=== PATIENT | female | born 1995 | race Caucasian/White ===

== ENCOUNTER 2017-07-04 05:00 | Emergency (ER) | payer SELFPAY ==
[~2017-07-04] VITALS: Ht 165.1 cm; Wt 60.0 kg
[2017-07-04 05:09] VITALS: BP 144/75; PULSE 89; RESP 18; TEMP 98.4; O2SAT 97
[2017-07-04] MEDS ORDERED: LIDOCAINE VISCOUS 2% SOLN 15 ML UDC SWISH-SWAL ONE (05:30)
[2017-07-04] MEDS ORDERED: ALUMINUM/MAGNESIUM/SIMETH 30 ML CUP PO ONE (05:30)
[2017-07-04] MEDS ORDERED: ONDANSETRON ODT 4 MG TAB PO ONE (05:30)
[2017-07-04] MEDS ORDERED: METOCLOPRAMIDE HCL 10 MG/2 ML VIAL IM SCH (06:00)
--- NOTE | 2017-07-04 06:09 | PD ---
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 Pt has epigastric pain and N/V . pt is asking for IV fluid . I explain that Zofran ODT is indicated and will treat her accordingly. Patient denies hematemesis she denies diarrhea she denies trauma she denies any fall or head injury she is just been drinking for over 7 hours she says and feels that she needs IV fluid and has mild epigastric pain and retching. no signs of pancreatitis or GB disease PO treatment indicated at this time [facility] Past Medical History Medical History: Denies Significant Hx ?: Not Past Surgical History Surgical History: No Previous Surgery Social History Alcohol Use: Yes Tobacco Use: No Substance Use: No Allergies-Medications (Allergen,Severity, Reaction): Coded Allergies: No Known Allergies (Unverified , 07/04/17) Reported Meds & Prescriptions Reported Meds & Active Scripts Active Zofran Odt (Ondansetron Odt) 4 Mg Tab 4 Mg SL Q6HR PRN Review of Systems Except as stated in HPI: all other systems reviewed are Neg Gastrointestinal: Positive: Vomiting, Abdominal Pain, No: Hematemesis, Hematochezia, Constipation, Changes in Bowel Habits, Indigestion (Heavy alcohol intoxication now leading to vomit and epigastric pain) Physical Exam Narrative GENERAL: smiling telling me her main complaint is epigastric pain after binge drinking No active vomit in triage or exam room on initial eval SKIN: Warm and dry. HEAD: Atraumatic. Normocephalic. EYES: Pupils equal and round. No scleral icterus. No injection or drainage. ENT: No nasal bleeding or discharge. Mucous membranes pink and moist. NECK: Trachea midline. No JVD. CARDIOVASCULAR: Regular rate and rhythm. RESPIRATORY: No accessory muscle use. Clear to auscultation. Breath sounds equal bilaterally. GASTROINTESTINAL: Abdomen tender to epigastric area soft, nondistended. Hepatic and splenic margins not palpable. MUSCULOSKELETAL: Extremities without clubbing, cyanosis, or edema. No obvious deformities. NEUROLOGICAL: Awake and alert. No obvious cranial nerve deficits. Motor grossly within normal limits. Five out of 5 muscle strength in the arms and legs. Normal speech. PSYCHIATRIC: Appropriate mood and affect; insight and judgment normal. Data Data Last Documented VS Vital Signs Date Time Temp Pulse Resp B/P (MAP) Pulse Ox O2 Delivery O2 Flow Rate FiO2 07/04/17 05:09 98.4 89 18 144/75 (98) 97 Orders Orders Ondansetron Odt (Zofran Odt) (07/04/17 05:30) Al-Mag Hy-Si 40-40-4 Mg/Ml Liq (Mag-Al P (07/04/17 05:30) Lidocaine 2% Viscous (Xylocaine 2% Visco (07/04/17 05:30) Metoclopramide Inj (Reglan Inj) (07/04/17 06:00) Ranitidine Liq (Zantac Liq) (07/04/17 06:15) Complete Blood Count With Diff (07/04/17 07:22) Comprehensive Metabolic Panel (07/04/17 07:22) Lipase (07/04/17 07:22) Urinalysis - C+S If Indicated (07/04/17 07:22) Iv Access Insert/Monitor (07/04/17 07:22) Ecg Monitoring (07/04/17 07:22) Oximetry (07/04/17 07:22) Sodium Chlor 0.9% 1000 Ml Inj (Ns 1000 M (07/04/17 07:22) Sodium Chloride 0.9% Flush (Ns Flush) (07/04/17 07:30) Ed Urine Pregnancytest Poc (07/04/17 07:22) Lorazepam Inj (Ativan Inj) (07/04/17 07:45) Lorazepam Inj (Ativan Inj) (07/04/17 08:15) Ed Discharge Order (07/04/17 08:45) Labs Laboratory Tests Test 07/04/17 07:30 07/04/17 08:07 White Blood Count 10.7 TH/MM3 Red Blood Count 4.55 MIL/MM3 Hemoglobin 14.6 GM/DL Hematocrit 41.1 % Mean Corpuscular Volume 90.2 FL Mean Corpuscular Hemoglobin 32.0 PG Mean Corpuscular Hemoglobin Concent 35.5 % Red Cell Distribution Width 12.6 % Platelet Count 260 TH/MM3 Mean Platelet Volume 8.1 FL Neutrophils (%) (Auto) 82.0 % Lymphocytes (%) (Auto) 14.0 % Monocytes (%) (Auto) 3.3 % Eosinophils (%) (Auto) 0.3 % Basophils (%) (Auto) 0.4 % Neutrophils # (Auto) 8.8 TH/MM3 Lymphocytes # (Auto) 1.5 TH/MM3 Monocytes # (Auto) 0.4 TH/MM3 Eosinophils # (Auto) 0.0 TH/MM3 Basophils # (Auto) 0.0 TH/MM3 CBC Comment DIFF FINAL Differential Comment Blood Urea Nitrogen 11 MG/DL Creatinine 0.83 MG/DL Random Glucose 88 MG/DL Total Protein 7.9 GM/DL Albumin 4.4 GM/DL Calcium Level 9.0 MG/DL Alkaline Phosphatase 58 U/L Aspartate Amino Transf (AST/SGOT) 55 U/L Alanine Aminotransferase (ALT/SGPT) 54 U/L Total Bilirubin 0.6 MG/DL Sodium Level 143 MEQ/L Potassium Level 3.8 MEQ/L Chloride Level 111 MEQ/L Carbon Dioxide Level 21.7 MEQ/L Anion Gap 10 MEQ/L Estimat Glomerular Filtration Rate 89 ML/MIN Lipase 69 U/L Urine Color YELLOW Urine Turbidity CLEAR Urine pH 6.5 Urine Specific [place] 1.025 Urine Protein TRACE mg/dL Urine Glucose (UA) NEG mg/dL Urine Ketones 40 mg/dL Urine Occult Blood TRACE Urine Nitrite NEG Urine Bilirubin NEG Urine Urobilinogen 2.0 MG/DL Urine Leukocyte Esterase NEG Urine RBC 2 /hpf Urine WBC 1 /hpf Urine Squamous Epithelial Cells <1 /hpf Urine Bacteria RARE /hpf Urine Hyaline Casts 2 /lpf Urine Mucus FEW /lpf Microscopic Urinalysis Comment CULT NOT INDICATED MDM Medical Decision Making Medical Screen Exam Complete: Yes Emergency Medical Condition: Yes Differential Diagnosis etoh induced gastritis vs GB disease etoh induced pancreatitis , vs other cuasing of N/V Narrative Course PO zofran ODT IM reglan, and PO liquid zantac pt seems to still be wretching , will sign out to next oncoming attending , for possible further work up and treatment Diagnosis Primary Impression: Gastritis due to alcohol without hemorrhage Qualified Codes: K29.20 - Alcoholic gastritis without bleeding Scripts Ondansetron Odt (Zofran Odt) 4 Mg Tab 4 MG SL Q6HR Y for Nausea/Vomiting, #20 TAB 0 Refills Prov: Garcia,Bello J MD 07/04/17 Binh Palacio MD Jul 04, 2017 06:09
[2017-07-04] MEDS ORDERED: RANITIDINE HCL SYRUP 150 MG/10 ML UDC PO ONE (06:15)
[2017-07-04] MEDS ORDERED: SODIUM CHLOR 0.9% 1000 ML INJ 1,000 ML IV SCH (07:22)
--- NOTE | 2017-07-04 07:27 | PD ---
Data Data Last Documented VS Vital Signs Date Time Temp Pulse Resp B/P (MAP) Pulse Ox O2 Delivery O2 Flow Rate FiO2 07/04/17 05:09 98.4 89 18 144/75 (98) 97 Orders Orders Ondansetron Odt (Zofran Odt) (07/04/17 05:30) Al-Mag Hy-Si 40-40-4 Mg/Ml Liq (Mag-Al P (07/04/17 05:30) Lidocaine 2% Viscous (Xylocaine 2% Visco (07/04/17 05:30) Metoclopramide Inj (Reglan Inj) (07/04/17 06:00) Ranitidine Liq (Zantac Liq) (07/04/17 06:15) Complete Blood Count With Diff (07/04/17 07:22) Comprehensive Metabolic Panel (07/04/17 07:22) Lipase (07/04/17 07:22) Urinalysis - C+S If Indicated (07/04/17 07:22) Iv Access Insert/Monitor (07/04/17 07:22) Ecg Monitoring (07/04/17 07:22) Oximetry (07/04/17 07:22) Sodium Chlor 0.9% 1000 Ml Inj (Ns 1000 M (07/04/17 07:22) Sodium Chloride 0.9% Flush (Ns Flush) (07/04/17 07:30) Ed Urine Pregnancytest Poc (07/04/17 07:22) Lorazepam Inj (Ativan Inj) (07/04/17 07:45) Lorazepam Inj (Ativan Inj) (07/04/17 08:15) Ed Discharge Order (07/04/17 08:45) Labs Laboratory Tests Test 07/04/17 07:30 07/04/17 08:07 White Blood Count 10.7 TH/MM3 Red Blood Count 4.55 MIL/MM3 Hemoglobin 14.6 GM/DL Hematocrit 41.1 % Mean Corpuscular Volume 90.2 FL Mean Corpuscular Hemoglobin 32.0 PG Mean Corpuscular Hemoglobin Concent 35.5 % Red Cell Distribution Width 12.6 % Platelet Count 260 TH/MM3 Mean Platelet Volume 8.1 FL Neutrophils (%) (Auto) 82.0 % Lymphocytes (%) (Auto) 14.0 % Monocytes (%) (Auto) 3.3 % Eosinophils (%) (Auto) 0.3 % Basophils (%) (Auto) 0.4 % Neutrophils # (Auto) 8.8 TH/MM3 Lymphocytes # (Auto) 1.5 TH/MM3 Monocytes # (Auto) 0.4 TH/MM3 Eosinophils # (Auto) 0.0 TH/MM3 Basophils # (Auto) 0.0 TH/MM3 CBC Comment DIFF FINAL Differential Comment Blood Urea Nitrogen 11 MG/DL Creatinine 0.83 MG/DL Random Glucose 88 MG/DL Total Protein 7.9 GM/DL Albumin 4.4 GM/DL Calcium Level 9.0 MG/DL Alkaline Phosphatase 58 U/L Aspartate Amino Transf (AST/SGOT) 55 U/L Alanine Aminotransferase (ALT/SGPT) 54 U/L Total Bilirubin 0.6 MG/DL Sodium Level 143 MEQ/L Potassium Level 3.8 MEQ/L Chloride Level 111 MEQ/L Carbon Dioxide Level 21.7 MEQ/L Anion Gap 10 MEQ/L Estimat Glomerular Filtration Rate 89 ML/MIN Lipase 69 U/L Urine Color YELLOW Urine Turbidity CLEAR Urine pH 6.5 Urine Specific [place] 1.025 Urine Protein TRACE mg/dL Urine Glucose (UA) NEG mg/dL Urine Ketones 40 mg/dL Urine Occult Blood TRACE Urine Nitrite NEG Urine Bilirubin NEG Urine Urobilinogen 2.0 MG/DL Urine Leukocyte Esterase NEG Urine RBC 2 /hpf Urine WBC 1 /hpf Urine Squamous Epithelial Cells <1 /hpf Urine Bacteria RARE /hpf Urine Hyaline Casts 2 /lpf Urine Mucus FEW /lpf Microscopic Urinalysis Comment CULT NOT INDICATED MDM Supervised Visit with KEITH: No Narrative Course Patient CARE assume from Dr. Palacio at 07 100, this is a 21-year-old female presents emergency department for evaluation of nausea vomiting and abdominal discomfort which started about midnight last night. Patient states she was binge drinking last night. She states when this happened to her in the past she had to come to the emergency department to have IV fluids. From the onset of her encounter she is requesting IV fluids. According to Dr. Palacio she had gone to the restroom several times during the course of her encounter with him and apparently had been coughing and retching but she has not had any sample of emesis in the room. She been given Reglan Zofran GI cocktail and liquid Pepcid in the emergency department, she states she still feeling very lousy and continues to drop and she cannot tolerate fluids. Her abdomen is completely benign for me, she appears well. When I asked her how many times happened to her before she states only once in the past. She states she "has a problem" alluding to her alcohol ingestion. I discussed with her as she ever tried to seek help for her alcohol and she states no because just a casual weekend thing. Patient had IV access obtained and was given a liter normal saline, she did have some dry heaves during my evaluation with her, she is already received Zofran and Phenergan as above, her plan is to taxi home and so I have added 1/2 mg of Ativan for nausea control and she has not had any significant withdrawal symptoms and no tremors. on reassessment she is sleeping soundly easily awoken to voice, discussed with her that her labs do show some transaminitis consistent with some mild acute alcoholic hepatitis, discussed with her that she needs to slow down her drinking and eventually stop it. She verbalized understanding and agreement. She is feeling much better and would like to be discharged Diagnosis Primary Impression: Alcoholic gastritis Additional Impressions: Transaminitis Alcoholic hepatitis Referrals: [facility] Patient Instructions: Abuse of Alcohol (DC), Alcohol Use Disorder (DC), Alcoholic Hepatitis (DC), General Instructions Med/Other Pt SpecificInfo: Prescription(s) given Scripts Ondansetron Odt (Zofran Odt) 4 Mg Tab 4 MG SL Q6HR Y for Nausea/Vomiting, #20 TAB 0 Refills Prov: Bello Garcia MD 07/04/17 Disposition: 01 DISCHARGE HOME Condition: Stable Bello Garcia MD Jul 04, 2017 07:27
[2017-07-04] MEDS ORDERED: SODIUM CHLORIDE 0.9% FLUSH 10 ML FLUSH IV FLUSH PRN (07:30)
[2017-07-04] MEDS ORDERED: LORazepam 2 MG/ML VIAL IV PUSH ONE ×2 (07:45→08:15)
[2017-07-04 07:48] LABS: AUTOMATED NEUTROPHIL # 8.8 TH/MM3 (1.8-7.7); BASOPHIL % 0.4 % (0.0-2.0); EOSINOPHIL % 0.3 % (0.0-4.0); HEMATOCRIT 41.1 % (35.0-46.0); HEMOGLOBIN 14.6 GM/DL (11.6-15.3); LYMPHOCYTE # 1.5 TH/MM3 (1.0-4.8); MEAN CELL VOLUME 90.2 FL (80.0-100.0); MEAN CORPUSCULAR HGB CONC 35.5 % (32.0-36.0); MEAN PLATELET VOLUME 8.1 FL (7.0-11.0); MONO % 3.3 % (0.0-8.0); MONOCYTE # 0.4 TH/MM3 (0-0.9); PLATELET COUNT 260 TH/MM3 (150-450); RED BLOOD COUNT 4.55 MIL/MM3 (4.00-5.30); RED CELL DISTRIBUTION WIDTH 12.6 % (11.6-17.2); WHITE BLOOD COUNT 10.7 TH/MM3 (4.0-11.0)
[2017-07-04 08:04] LABS: ALBUMIN 4.4 GM/DL (3.4-5.0); AST (GOT) 55 U/L (16-38); BICARBONATE 21.7 MEQ/L (21.0-32.0); BLOOD UREA NITROGEN 11 MG/DL (7-18); CHLORIDE 111 MEQ/L (98-107); CREATININE 0.83 MG/DL (0.50-1.00); GLOMERULAR FILTRATION RATE 89 ML/MIN (>89); GLUCOSE,RANDOM 88 MG/DL (74-106); SODIUM (NA) 143 MEQ/L (136-145)
[2017-07-04 08:07] LABS: ALKALINE PHOSPHATASE 58 U/L (45-117); ALT (GPT) 54 U/L (9-42); TOTAL BILIRUBIN ADULT 0.6 MG/DL (0.2-1.0); TOTAL PROTEIN 7.9 GM/DL (6.4-8.2)
[2017-07-04 08:19] LABS: BACTERIA, URINE RARE /hpf; BILIRUBIN, URINE NEG (NEG); BLOOD, URINE TRACE (NEG); GLUCOSE,URINE NEG (NEG); HYALINE CAST, URINE 2 /lpf (RARE); KETONE, URINE 40 mg/dL (NEG); MUCUS URINE FEW /lpf (OCC); NITRITE,URINE NEG (NEG); PH, URINE 6.5 (5.0-8.5); SQUAMOUS EPITHELIAL CELL URINE <1 /hpf (0-5); URINE COLOR YELLOW (YELLW/STRAW); URINE LEUKOCYTE ESTERASE NEG (NEG)
[2017-07-04] MEDS ORDERED: ZOFR4TAB3 SL (08:44)
== END 2017-07-04 09:26 | disposition home or self-care (01) ==
LOC: NEPE 05:00
DX: K29.20 Alcoholic gastritis without bleeding (principal); R74.0 Nonspecific elevation of levels of transaminase and lactic acid dehydrogenase [LDH]; K70.10 Alcoholic hepatitis without ascites
CPT/HCPCS: 80053; 81001; 83690; 84703; 85025; 96361; 96372; 96374; 99284; J2060; J2765; J7030